=== PATIENT | male | born 1970 | race Caucasian/White ===

== ENCOUNTER → 2020-09-26 | Outpatient (CLI) | payer OTHER ==
--- NOTE | 2020-09-26 13:28 | MR ---
EXAMINATION TYPE: MR knee LT wo con DATE OF EXAM: 09/26/2020 COMPARISON: 06/22/2010 HISTORY: Pain TECHNIQUE: Multiplanar, multisequence imaging of the left knee is performed without IV contrast. FINDINGS: MEDIAL MENISCUS: Extensive degeneration posterior horn medial meniscus without definite tear at this time. Anterior horn is intact. LATERAL MENISCUS: Anterior and posterior horns are intact without tear. CRUCIATE LIGAMENTS: The anterior and posterior cruciate ligaments are intact and unremarkable. COLLATERAL LIGAMENTS: The medial collateral ligament and lateral collateral ligament complex are inta ct and unremarkable. EXTENSOR MECHANISM: Visualized quadriceps and patellar tendons are intact. EFFUSION: No significant suprapatellar joint effusion. POPLITEAL CYST: Saleh's cyst noted measuring approximately 2.4 cm. TRICOMPARTMENT SPACES: Moderate degenerative joint space narrowing greatest at the patellofemoral jayesh nt space with chondromalacia patella seen. CARTILAGE: Chondromalacia patella. BONE MARROW SIGNAL: No focal abnormal marrow signal is appreciated. OTHER: Subchondral cyst formation noted. IMPRESSION: 1. Degenerative changes of osteoarthritis with subchondral cyst formation and changes of chondromalac ia patella. 2. Axial degeneration posterior horn medial meniscus. 3. Saleh's cyst.
== END | disposition home or self-care (01) ==
LOC: RADMRIMAIN 11:55
DX: M17.12 Unilateral primary osteoarthritis, left knee (principal); M22.42 Chondromalacia patellae, left knee; M23.322 Other meniscus derangements, posterior horn of medial meniscus, left knee; M71.22 Synovial cyst of popliteal space [Baker], left knee; Z88.8 Allergy status to other drugs, medicaments and biological substances; Z91.048 Other nonmedicinal substance allergy status

== ENCOUNTER 2021-07-12 15:09 | Emergency (ER) | payer OTHER ==
[2021-07-12 15:50] VITALS: BP 121/78; PULSE 68; RESP 20; TEMP 98.9
--- NOTE | 2021-07-12 16:42 | US ---
EXAMINATION TYPE: US venous doppler duplex LE RT DATE OF EXAM: 07/12/2021 4:22 PM COMPARISON: NONE CLINICAL HISTORY: pain in calf. right calf pain for 2 weeks. history of DVT right leg 2014. patient c urrently on blood thinner SIDE PERFORMED: right TECHNIQUE: The lower extremity deep venous system is examined utilizing real time linear array sonog holden with graded compression, doppler sonography and color-flow sonography. VESSELS IMAGED: Common Femoral Vein Deep Femoral Vein Greater Saphenous Vein * Femoral Vein Popliteal Vein Small Saphenous Vein * Proximal Calf Veins (* superficial vessels) Right Leg: +positive for DVT, appearing chronic. thready flow with partial compression right femoral vein extending into popliteal vein IMPRESSION: There is chronic deep vein thrombosis in the right femoral and popliteal vein. No acute d eep vein thrombosis.
== END 2021-07-12 18:09 | disposition left against medical advice (07) ==
LOC: EC 15:09
DX: M79.604 Pain in right leg (principal)
CPT/HCPCS: 99499

== ENCOUNTER → 2022-05-16 | Outpatient (CLI) | payer OTHER ==
--- NOTE | 2022-05-16 17:52 | P.SLEEP ---
History of Present Illness DATE: 05/16/2022 CONSULTATION/NEW PATIENT EVALUATION HISTORY OF PRESENT ILLNESS/SLEEP-WAKE EVALUATION: 51 year old gentleman had b een evaluated in the sleep center for possible obstructive sleep apnea hypopnea syndrome and some abnormal movements during the sleep. SLEEP SCHEDULE: Usually sleep schedule on weekdays 9 PM to 4:30 AM, during days off 10 PM to 9 AM. FALLING ASLEEP: Sometimes patient has problems with falling to sleep, although no TV in bedroom. DURING SLEEP: Patient has loud snoring and witnessed episodes of sleep apnea by his . Positive history of leg movements, loud moaning. No history of sleep paralysis, or cataplexy. DURING THE DAY/WAKE STATE: Patient wake up tired and sleepy, falling asleep d uring the day. [place] Sleepiness Scale is 5. Patient takes naps early afternoon. 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 PAST SURGICAL HISTORY: Surgery for arterial septal defect in 2002, thrombolysis in 2015. MEDICATIONS: Xarelto 20 mg once a day, allopurinol 200 mg once a day, atorvastatin 20 mg once a day, Synthroid 125 g once a day, loratidine 10 mg once a day, Escitalopram 10 mg once a day. SOCIAL HISTORY: Negative for smoking, alcohol consumption occasional. FAMILY HISTORY: Cancer, hypertension, diabetes. REVIEW OF SYSTEMS: Loud snoring, witnessed sleep apneas. No fevers. No double vision. No recent chest pain. No shortness of breath. No abdominal pain. No bleeding episodes. No blood in urine. No seizure episodes. PHYSICAL EXAMINATION: GENERAL: A pleasant patient without any distress. VITAL SIGNS: BP 121/85 , HR 98 , RR 16 , weight 268 pounds, height 6 foot 0 inches, body mass index 36.3 . HEENT: PERRLA, EOMI. Evaluation of oropharynx showed tongue protrudes midline, low position of soft palate Mallampati 4. NECK: Supple. No JVD. Thyroid is not palpable. 18 and a half inches in circumference. LUNGS: Clear to percussion and to auscultation. Good air exchange. No wheezing or rhonchi. HEART: S1, S2 regular. No murmurs, gallops or rubs. ABDOMEN: Soft and nontender. Bowel sounds are present. No organomegaly appreciated. EXTREMITIES: No clubbing or cyanosis. WELDER TOOL AND DIE: Awake, alert, and oriented x3. Cranial nerves 2 to 7 intact. There is no fasciculation or atrophy noted. No focal deficits observed. ASSESSMENT: 1. Loud snoring, witnessed sleep apneas, extremely low position of soft palate Mallampati 4, episodes of sleepiness. Obstructive sleep apnea hypopnea syndrome. 2. Significant amount of movements during the sleep. Possible periodic limb movements. Rule out REM sleep behavior disorder. 3 history of thrombotic stroke in 1993. 4. History of pulmonary embolism in 2016. 5 history of deep venous thrombosis. 6. Status post surgical treatment for arterial septal defect. 7. Gout. 8. Hypothyroidism. 9. Hyperlipidemia. 10. Obesity body mass index 36.3. PLAN: 1. Polysomnography for evaluation of patient's breathing during sleep. 2. CPAP/BiPAP titration if sleep study confirms obstructive sleep apnea- hypopnea syndrome. 3. Preferable position during sleep on the side. 4. No driving if patient feels any sleepiness. Patient is aware of civil and criminal liability for unsafe driving. 5. Sleep hygiene with regular sleep time for at least 7.5-8 hours. 6. Watching weight. Thank you very much for referring this patient for consultation. Sincerely, Carlitos Ku MD, PhD, FAASM. Diplomat of [employer], Sleep Medicine Board by [employer] Telephone Operator of [facility] [place] Past Medical History Past Medical History: Deep Vein Thrombosis (DVT), Thyroid Disorder Additional Past Medical History / Comment(s): gout, PE History of Any Multi-Drug Resistant Organisms: None Reported Past Surgical History: Coronary Bypass/CABG, Orthopedic Surgery Past Psychological History: Anxiety Smoking Status: Never smoker Past Alcohol Use History: Occasional Past Drug Use History: None Reported Medications and Allergies Allergies Allergy/AdvReac Type Severity Reaction Status Date / Time No Known Allergies Allergy Verified 07/12/21 15:47 Sleep Note - Sleep Note Sleep Note: Temperature: Pulse Rate: Respiratory Rate: Blood Pressure: SpO2: Height: Weight: BMI: Neck Circumference:
== END | disposition home or self-care (01) ==
LOC: SLEEP 15:14
PROVIDERS: ATTEND Internal Medicine
DX: G47.33 Obstructive sleep apnea (adult) (pediatric) (principal); M10.9 Gout, unspecified; E03.9 Hypothyroidism, unspecified; E78.5 Hyperlipidemia, unspecified; E66.9 Obesity, unspecified; Z68.36 Body mass index [BMI] 36.0-36.9, adult; Z86.79 Personal history of other diseases of the circulatory system; Z86.69 Personal history of other diseases of the nervous system and sense organs
CPT/HCPCS: 99211

== ENCOUNTER 2024-09-20 11:31 | Emergency (ER) | payer OTHER ==
[2024-09-20 11:37] VITALS: TEMP 98.2
--- NOTE | 2024-09-20 12:10 | ED ---
General Adult HPI - General Chief complaint: Upper Respiratory Infection Stated complaint: Hemoptysis Time Seen by Provider: 09/20/24 12:01 Source: patient, family, RN notes reviewed Mode of arrival: EMS Limitations: no limitations - History of Present Illness Initial comments: Patient is 54-year-old male present to the emergency department with hemoptysis. Onset was today. Patient coughed up less than a half a cup. Patient has no other complaints. Patient is on Eliquis secondary to history of PE. Patient also is on chemotherapy for stage IV metastatic colon cancer. Patient denies any dyspnea or cough otherwise. No congestion. No fever. No other areas of bleeding or concern. - Related Data Allergies Allergy/AdvReac Type Severity Reaction Status Date / Time No Known Allergies Allergy Verified 09/20/24 11:37 Review of Systems ROS Statement: Those systems with pertinent positive or pertinent negative responses have been documented in the HPI. ROS Other: All systems not noted in ROS Statement are negative. Constitutional: Denies: fever Eyes: Denies: eye pain ENT: Denies: ear pain Respiratory: Reports: as per HPI, hemoptysis Cardiovascular: Denies: chest pain Gastrointestinal: Reports: as per HPI. Denies: hematemesis, melena, hematochezia Musculoskeletal: Denies: back pain Past Medical History Past Medical History: Deep Vein Thrombosis (DVT), Thyroid Disorder Additional Past Medical History / Comment(s): gout, PE, colon cancer History of Any Multi-Drug Resistant Organisms: None Reported Past Surgical History: Coronary Bypass/CABG, Orthopedic Surgery Past Psychological History: Anxiety Smoking Status: Never smoker Past Alcohol Use History: Occasional Past Drug Use History: None Reported General Exam Limitations: no limitations General appearance: alert, in no apparent distress Head exam: Present: normocephalic Eye exam: Present: normal appearance ENT exam: Present: other (Trace dried blood visualized in the nares) Neck exam: Present: normal inspection Respiratory exam: Present: normal lung sounds bilaterally Cardiovascular Exam: Present: regular rate, normal rhythm GI/Abdominal exam: Present: soft. Absent: tenderness Extremities exam: Present: normal inspection. Absent: pedal edema, calf tenderness Neurological exam: Present: alert Psychiatric exam: Present: normal affect, normal mood Skin exam: Present: normal color Course Vital Signs 09/20/24 11:33 Temperature 98.2 F Pulse Rate 87 Respiratory 18 Rate Blood Pressure 151/91 O2 Sat by Pulse 94 L Oximetry EKG Findings - EKG Results: EKG: interpreted by ERMD (Nonspecific ST-T), sinus rhythm, normal axis, normal QRS Medical Decision Making - Medical Decision Making Was pt. sent in by a medical professional or institution (ALEX Vasquez, CAR DESIGNER, urgent care, hospital, or correction...) When possible be specific @ -No Did you speak to anyone other than the patient for history (EMS, parent, family, police, friend...)? What history was obtained from this source @ -Family is present and helps provide history including amount of hemoptysis Did you review nursing and triage notes (agree or disagree)? Why? @ -I reviewed and agree with nursing and triage notes Were old charts reviewed (outside hosp., previous admission, EMS record, old EKG, old radiological studies, urgent care reports/EKG's, correction records)? Report findings @ -No old charts were reviewed Differential Diagnosis (chest pain, altered mental status, abdominal pain women, abdominal pain men, vaginal bleeding, weakness, fever, dyspnea, syncope, he adache, dizziness, GI bleed, back pain, seizure, CVA, palpatations, mental health, musculoskeletal)? @ -Differential Dyspnea: Coronary syndrome, arrhythmia, tamponade, asthma, COPD, pulmonary embolism, pneumonia, pneumothorax, pulmonary effusion, anaphylaxis, diabetic ketoacidosis, flailed chest, pulmonary contusion, diaphragmatic rupture, anemia, neuromuscular, this is not meant to be an all-inclusive list. EKG interpreted by me (3pts min.). @ -As above X-rays interpreted by me (1pt min.). @ -None done CT interpreted by me (1pt min.). @ -CT scan is somewhat suboptimal. Lung nodule. No obvious embolism U/S interpreted by me (1pt. min.). @ -None done What testing was considered but not performed or refused? (CT, X-rays, U/S, labs)? Why? @ -None What meds were considered but not given or refused? Why? @ -None Did you discuss the management of the patient with other professionals (professionals i.e. ALEX Vasquez, CAR DESIGNER, lab, RT, psych nurse, older adult social work specialist, burglar alarm installer, teacher, bank operations officer, case checker)? Give summary @ -Case discussed in detail with Dr. Prince who states patient can be discharged and to hold Eliquis 3 days Was smoking cessation discussed for >3mins.? @ -No Was critical care preformed (if so, how long)? @ -No Were there social determinants of health that impacted care today? How? (Homelessness, low income, unemployed, alcoholism, drug addiction, transportatio n, low edu. Level, literacy, decrease access to med. care, [facility], rehab)? @ -No Was there de-escalation of care discussed even if they declined (Discuss DNR or withdrawal of care, Hospice)? DNR status @ -No What co-morbidities impacted this encounter? (DM, HTN, Smoking, COPD, CAD, Cancer, CVA, ARF, Chemo, Hep., AIDS, mental health diagnosis, sleep apnea, morbid obesity)? @ -Patient on Eliquis, history of metastatic colon cancer Was patient admitted / discharged? Hospital course, mention meds given and route, prescriptions, significant lab abnormalities, going to OR and other pertinent info. @ -Patient presents with hemoptysis. No significant hemoptysis in the emergency department. Patient reevaluated and resting comfortably in bed. CT scan unremarkable for acute cause. Labs otherwise noncontributory. Patient will be discharged and recommended follow-up and holding Eliquis for 3 days. Patient updated and demonstrates understanding. Patient is specifically updated on lung nodule Undiagnosed new problem with uncertain prognosis? @ -No Drug Therapy requiring intensive monitoring for toxicity (Heparin, Nitro, Insulin, Cardizem)? @ -No Were any procedures done? @ -No Diagnosis/symptom? @ -Hemoptysis Acute, or Chronic, or Acute on Chronic? @ -Acute Uncomplicated (without systemic symptoms) or Complicated (systemic symptoms)? @ -Default Side effects of treatment? @ -No Exacerbation, Progression, or Severe Exacerbation? @ -No Poses a threat to life or bodily function? How? (Chest pain, [place], [place], pneumonia, PE, COPD, DKA, ARF, appy, cholecystitis, CVA, Diverticulitis, Homicidal, Suicidal, threat to staff... and all critical care pts) @ -Threat to pulmonary and hematological function - Lab Data Result diagrams: 09/20/24 12:34 09/20/24 12:34 Lab Results 09/20/24 09/20/24 09/20/24 Range/Units 12:34 12:34 12:34 WBC 3.0 L (3.8-10.6) k/uL RBC 4.92 (4.30-5.90) m/uL Hgb 14.6 (13.0-17.5) gm/dL Hct 44.0 (39.0-53.0) % MCV 89.5 (80.0-100.0) fL MCH 29.7 (25.0-35.0) pg MCHC 33.2 (31.0-37.0) g/dL RDW 15.1 (11.5-15.5) % Plt Count 178 (150-450) k/uL MPV 7.1 Neutrophils % 65 % Lymphocytes % 25 % Monocytes % 3 % Eosinophils % 2 % Basophils % 1 % Neutrophils # 1.9 (1.3-7.7) k/uL Lymphocytes # 0.8 L (1.0-4.8) k/uL Monocytes # 0.1 (0-1.0) k/uL Eosinophils # 0.1 (0-0.7) k/uL Basophils # 0.0 (0-0.2) k/uL PT 10.6 (10.0-12.5) sec INR 1.0 (<1.2) APTT 24.0 (22.0-30.0) sec Sodium 132 L (137-145) mmol/L Potassium 3.9 (3.5-5.1) mmol/L Chloride 101 (98-107) mmol/L Carbon Dioxide 19 L (22-30) mmol/L Anion Gap 12 mmol/L BUN 12 (9-20) mg/dL Creatinine 0.85 (0.66-1.25) mg/dL Est GFR (CKD-EPI)AfAm >90 (>60 ml/min/1.73 sqM) Est GFR (CKD-EPI)NonAf >90 (>60 ml/min/1.73 sqM) Glucose 242 H (74-99) mg/dL Plasma Lactic Acid Walker (0.7-2.0) mmol/L Calcium 9.1 (8.4-10.2) mg/dL Magnesium 2.3 (1.6-2.3) mg/dL Total Bilirubin 0.6 (0.2-1.3) mg/dL AST 51 (17-59) U/L ALT 43 (4-49) U/L Alkaline Phosphatase 72 (38-126) U/L Total Protein 7.1 (6.3-8.2) g/dL Albumin 4.1 (3.5-5.0) g/dL 09/20/24 Range/Units 12:34 WBC (3.8-10.6) k/uL RBC (4.30-5.90) m/uL Hgb (13.0-17.5) gm/dL Hct (39.0-53.0) % MCV (80.0-100.0) fL MCH (25.0-35.0) pg MCHC (31.0-37.0) g/dL RDW (11.5-15.5) % Plt Count (150-450) k/uL MPV Neutrophils % % Lymphocytes % % Monocytes % % Eosinophils % % Basophils % % Neutrophils # (1.3-7.7) k/uL Lymphocytes # (1.0-4.8) k/uL Monocytes # (0-1.0) k/uL Eosinophils # (0-0.7) k/uL Basophils # (0-0.2) k/uL PT (10.0-12.5) sec INR (<1.2) APTT (22.0-30.0) sec Sodium (137-145) mmol/L Potassium (3.5-5.1) mmol/L Chloride (98-107) mmol/L Carbon Dioxide (22-30) mmol/L Anion Gap mmol/L BUN (9-20) mg/dL Creatinine (0.66-1.25) mg/dL Est GFR (CKD-EPI)AfAm (>60 ml/min/1.73 sqM) Est GFR (CKD-EPI)NonAf (>60 ml/min/1.73 sqM) Glucose (74-99) mg/dL Plasma Lactic Acid Walker 2.2 H* (0.7-2.0) mmol/L Calcium (8.4-10.2) mg/dL Magnesium (1.6-2.3) mg/dL Total Bilirubin (0.2-1.3) mg/dL AST (17-59) U/L ALT (4-49) U/L Alkaline Phosphatase (38-126) U/L Total Protein (6.3-8.2) g/dL Albumin (3.5-5.0) g/dL Disposition Clinical Impression: Hemoptysis Disposition: HOME SELF-CARE Condition: Stable Instructions (If sedation given, give patient instructions): Coughing Up Blood (Hemoptysis) (ED) Additional Instructions: Please do follow-up with your primary care physician and oncologist beginning of the week. Hold Eliquis for 3 days. Return for increased coughing up blood, bl eeding from other areas, difficulty breathing, fevers, worsening symptoms or any other concerns. Is patient prescribed a controlled substance at d/c from ED?: No [facility] [Primary Care Provider] - 1-2 days Tosin Curry MD [STAFF PHYSICIAN] - 1-2 days Time of Disposition: 14:28
[2024-09-20] MEDS: PANTOPRAZOLE 40 MG/10 ML VIAL IVP STA (12:37)
[2024-09-20 12:51] LABS: ALT 43 U/L (4-49); AST 51 U/L (17-59); African American GFR (CKD) >90 (>60 ml/min/1.73 sqM); Albumin 4.1 g/dL (3.5-5.0); Alkaline Phosphatase 72 U/L (38-126); Anion Gap 12 mmol/L; Blood Urea Nitrogen 12 mg/dL (9-20); Calcium 9.1 mg/dL (8.4-10.2); Carbon Dioxide 19 mmol/L (22-30); Chloride 101 mmol/L (98-107); Glucose 242 mg/dL (74-99); Magnesium 2.3 mg/dL (1.6-2.3); Non-African American GFR(CKD) >90 (>60 ml/min/1.73 sqM); Potassium 3.9 mmol/L (3.5-5.1); Prothrombin Time 10.6 sec (10.0-12.5); Sodium 132 mmol/L (137-145); Total Bilirubin 0.6 mg/dL (0.2-1.3); Total Protein 7.1 g/dL (6.3-8.2)
[2024-09-20 12:52] LABS: Basophils % (A) 1 %; Eosinophils # (A) 0.1 k/uL (0-0.7); Eosinophils % (A) 2 %; HGB 14.6 gm/dL (13.0-17.5); Lymphocytes # (A) 0.8 k/uL (1.0-4.8); Lymphocytes % (A) 25 %; MCH 29.7 pg (25.0-35.0); MCHC 33.2 g/dL (31.0-37.0); MCV 89.5 fL (80.0-100.0); Mean Platelet Volume 7.1; Monocytes # (A) 0.1 k/uL (0-1.0); Monocytes % (A) 3 %; Neutrophils # (A) 1.9 k/uL (1.3-7.7); Neutrophils % (A) 65 %; Platelet Count 178 k/uL (150-450); RBC 4.92 m/uL (4.30-5.90); RDW 15.1 % (11.5-15.5)
--- NOTE | 2024-09-20 13:24 | CT ---
EXAMINATION TYPE: CT angio chest DATE OF EXAM: 09/20/2024 COMPARISON: None CLINICAL INDICATION: Male, 54 years old with history of Hemoptysis; PHH, HEMOPTYSIS TECHNIQUE: CTA scan of the thorax is performed with IV Contrast, patient injected with 100 mL of Isovue 370, pul monary embolism protocol. MIP images are created and reviewed. CT DLP: 603.[address] CTDI: mGy Automated exposure control for dose reduction was used. FINDINGS: There is a 5.4 mm nodule in the right upper lobe. No other lung masses or nodules are seen. There is no airspace consolidation or abnormal interstitial density. There is no pleural effusion or pneumotho rax.. The great vessels chest are normal and no mediastinal, hilar or axillary adenopathy. There is less than optimal opacification of the pulmonary artery and branches but there is no definit e filling defect to suggest pulmonary embolism. Limited scanning through the upper abdomen reveals no significant abnormality. The osseous structures are intact. There is been median sternotomy. IMPRESSION: 1. Less than optimal opacification of the pulmonary arteries but there is no definite filling defect to suggest pulmonary embolism. 2. No acute cardiopulmonary disease. 3. 5.4 mm nodule in the right upper lobe. Likely benign finding although given history of colon cance r and no prior study for comparison, metastatic disease cannot be entirely excluded. [facility], , 09/20/2024 1:22 PM
[2024-09-20 14:49] VITALS: BP 123/89; PULSE 85; RESP 20
== END 2024-09-20 14:49 | disposition home or self-care (01) ==
LOC: EC 11:31
DX: R04.2 Hemoptysis (principal); Z79.01 Long term (current) use of anticoagulants; Z85.038 Personal history of other malignant neoplasm of large intestine
CPT/HCPCS: 36415; 93005; 80053; 83605; 83735; 85025; 85610; 85730; 71275; 99285; 96374; Q9967; J2470

== ENCOUNTER 2024-09-20 14:59 | Inpatient (IN) | payer OTHER ==
--- NOTE | 2024-09-20 15:40 | ED ---
General Adult HPI - General Chief complaint: ENT Stated complaint: just dc'd-still bleeding Time Seen by Provider: 09/20/24 15:08 Source: patient, family, RN notes reviewed, old records reviewed Mode of arrival: ambulatory Limitations: no limitations - History of Present Illness Initial comments: Patient is a 54-year-old male present to the emergency department for hemoptysis. Patient was just in the emergency department after an episode this morning. Patient was doing fine and left. Patient had another episode in the waiting room. Patient had approximately 1 cup worth. Patient states again this was all coughing, no emesis. No other areas of bleeding. Patient is on Eliquis secondary to history of pulmonary embolism. Patient also has history of being on chemotherapy with stage IV metastatic colon cancer. - Related Data Allergies Allergy/AdvReac Type Severity Reaction Status Date / Time No Known Allergies Allergy Verified 09/20/24 15:06 Review of Systems ROS Statement: Those systems with pertinent positive or pertinent negative responses have been documented in the HPI. ROS Other: All systems not noted in ROS Statement are negative. Constitutional: Denies: fever Eyes: Denies: as per HPI ENT: Denies: ear pain Respiratory: Reports: as per HPI, hemoptysis. Denies: dyspnea Cardiovascular: Denies: chest pain Endocrine: Denies: fatigue Gastrointestinal: Denies: abdominal pain, hematemesis, melena, hematochezia Past Medical History Past Medical History: Deep Vein Thrombosis (DVT), Thyroid Disorder Additional Past Medical History / Comment(s): gout, PE, colon cancer History of Any Multi-Drug Resistant Organisms: None Reported Past Surgical History: Coronary Bypass/CABG, Orthopedic Surgery Past Psychological History: Anxiety Smoking Status: Never smoker Past Alcohol Use History: Occasional Past Drug Use History: None Reported General Exam Limitations: no limitations General appearance: alert, in no apparent distress Head exam: Present: normocephalic Eye exam: Present: normal appearance ENT exam: Present: other (There is some mild fresh blood in the oropharynx, no evidence of active bleeding) Neck exam: Present: normal inspection Respiratory exam: Present: normal lung sounds bilaterally Cardiovascular Exam: Present: tachycardia GI/Abdominal exam: Present: soft. Absent: tenderness Extremities exam: Present: normal inspection Neurological exam: Present: alert Psychiatric exam: Present: normal affect, normal mood Skin exam: Present: normal color Course Vital Signs 09/20/24 15:03 Temperature 97.6 F Pulse Rate 123 H Respiratory 16 Rate Blood Pressure 160/79 O2 Sat by Pulse 95 Oximetry Medical Decision Making - Medical Decision Making Was pt. sent in by a medical professional or institution (ALEX Vasquez, [employer], urgent care, hospital, or fdc...) When possible be specific @ -No Did you speak to anyone other than the patient for history (EMS, parent, family, police, friend...)? What history was obtained from this source @ - is present and helps provide history of episode that occurred in the waiting room Did you review nursing and triage notes (agree or disagree)? Why? @ -I reviewed and agree with nursing and triage notes Were old charts reviewed (outside hosp., previous admission, EMS record, old EKG, old radiological studies, urgent care reports/EKG's, fdc records)? Report findings @ -No old charts were reviewed Differential Diagnosis (chest pain, altered mental status, abdominal pain women, abdominal pain men, vaginal bleeding, weakness, fever, dyspnea, syncope, headache, dizziness, GI bleed, back pain, seizure, CVA, palpatations, mental health, musculoskeletal)? @ -Differential Dyspnea: Coronary syndrome, arrhythmia, tamponade, asthma, COPD, pulmonary embolism, pneumonia, pneumothorax, pulmonary effusion, anaphylaxis, diabetic ketoacidosis, flailed chest, pulmonary contusion, diaphragmatic rupture, anemia, neuromuscular, this is not meant to be an all-inclusive list. EKG interpreted by me (3pts min.). @ -As above X-rays interpreted by me (1pt min.). @ -None done CT interpreted by me (1pt min.). @ -None done U/S interpreted by me (1pt. min.). @ -None done What testing was considered but not performed or refused? (CT, X-rays, U/S, labs)? Why? @ -Consider blood work and imaging however patient just had this done What meds were considered but not given or refused? Why? @ -None Did you discuss the management of the patient with other professionals (professionals i.e. ALEX Vasquez, [employer], lab, RT, psych nurse, delinquency prevention social worker, knock out hand, teacher, special officer automat, top case assembler)? Give summary @ -Case discussed with practitioner Yogesh who will admit with sound physician group, covering for this ND patient Was smoking cessation discussed for >3mins.? @ -No Was critical care preformed (if so, how long)? @ -No Were there social determinants of health that impacted care today? How? (Homelessness, low income, unemployed, alcoholism, drug addiction, transportation, low edu. Level, literacy, decrease access to med. care, skilled nursing, rehab)? @ -No Was there de-escalation of care discussed even if they declined (Discuss DNR or withdrawal of care, Hospice)? DNR status @ -No What co-morbidities impacted this encounter? (DM, HTN, Smoking, COPD, CAD, Cancer, CVA, ARF, Chemo, Hep., AIDS, mental health diagnosis, sleep apnea, morbid obesity)? @ -History of metastatic colon cancer. History of pulmonary embolism Was patient admitted / discharged? Hospital course, mention meds given and route, prescriptions, significant lab abnormalities, going to OR and other pertinent info. @ -Patient presents for return visit after discharge for hemoptysis with a larger episode. Patient will be held for observation. Pulmonary consult will be placed. If symptoms worsen patient may benefit from bronchoscopy or Eliquis reversal. Decision at this time not to reverse patient secondary to him being stable and being observed. Patient does have history of large pulmonary embolism Undiagnosed new problem with uncertain prognosis? @ -No Drug Therapy requiring intensive monitoring for toxicity (Heparin, Nitro, Insulin, Cardizem)? @ -No Were any procedures done? @ -No Diagnosis/symptom? @ -Hemoptysis Acute, or Chronic, or Acute on Chronic? @ -Acute Uncomplicated (without systemic symptoms) or Complicated (systemic symptoms)? @ -Default Side effects of treatment? @ -No Exacerbation, Progression, or Severe Exacerbation? @ -No Poses a threat to life or bodily function? How? (Chest pain, [place], [place], pneumonia, PE, COPD, DKA, ARF, appy, cholecystitis, CVA, Diverticulitis, Homicidal, S uicidal, threat to staff... and all critical care pts) @ -No Disposition Clinical Impression: Hemoptysis Disposition: ADMITTED IP TO THIS HOSP Is patient prescribed a controlled substance at d/c from ED?: No Referrals: [facility],Clinic [Primary Care Provider] - 1-2 days Time of Disposition: 15:43
[2024-09-20] MEDS ORDERED: ACETAMINOPHEN TAB 325 MG TAB PO PRN (15:43)
[2024-09-20] MEDS ORDERED: NALOXONE 0.4 MG/ML 1 ML VIAL IV PRN (15:43)
--- NOTE | 2024-09-20 16:09 | P.HPIM ---
History of Present Illness This is a 54-year-old male with past medical history of colon cancer currently on chemotherapy, pulmonary embolism, factor V Leiden deficiency, history of stroke currently on anticoagulation presents emergency department for 2 episodes of hemoptysis. His is also present at bedside. He states that this morning around 11:00 he had an episode of hemoptysis. It was bright red blood and he says that he did not have a large cough, it was small coughs but each time he would cough up it would bring up bright red blood sometimes with clots. He did present to the emergency department for further evaluation. He was evaluated by the ER physician, case was discussed with pulmonology, decision was made to discharge the patient. On his way to being discharged, patient had another episode of hemoptysis so decision was to admit the patient for further workup. He has a long complicated history, he states that he had valve veg etation, but he believes that his initial stroke was caused by ibalizumab of the vegetation that was growing on his valve. It has since been surgically removed and corrected. He he states that he has been on blood thinners for several years now, the latest being Eliquis. He is compliant with his medication. Patient states that he did take an Aleve yesterday but is not using it daily. No chronic steroid use. He is not a smoker, only occasionally drinks alcohol. Vital signs are stable. Labs are unremarkable. Past Medical History Past Medical History: Deep Vein Thrombosis (DVT), Thyroid Disorder Additional Past Medical History / Comment(s): gout, PE, colon cancer History of Any Multi-Drug Resistant Organisms: None Reported Past Surgical History: Coronary Bypass/CABG, Orthopedic Surgery Past Psychological History: Anxiety Smoking Status: Never smoker Past Alcohol Use History: Occasional Past Drug Use History: None Reported Medications and Allergies Allergies Allergy/AdvReac Type Severity Reaction Status Date / Time No Known Allergies Allergy Verified 09/20/24 15:06 Physical Exam Vitals: Vital Signs Temp Pulse Resp BP Pulse Ox 09/20/24 15:03 97.6 F 123 H 16 160/79 95 Intake and Output 09/20/24 09/20/24 09/20/24 06:59 14:59 22:59 Other: Weight 117.48 kg General: [nontoxic], [no distress], [appears at stated age], bright red blood noted in canister nearby Derm: [warm], [dry] Head: [atraumatic], [normocephalic], [symmetric] Eyes: [EOMI], [no lid lag], [anicteric sclera] Mouth: [no lip lesion], [mucus membranes moist] Cardiovascular: [S1S2 reg], [no murmur], [positive posterior tibial pulse bilateral], Lungs: [CTA bilateral], [no rhonchi, no rales] , [no accessory muscle use] Abdominal: [soft], [ nontender to palpation], [no guarding], [no appreciable organomegaly] Ext: [no gross muscle atrophy], [no edema], [no contractures] Neuro: [ CN II-XI grossly intact], [no focal neuro deficits] Psych: [Alert], [oriented], [appropriate affect] Assessment and Plan Assessment: Hemoptysis Acute blood loss anemia, stable hemoglobin Factor V Leiden deficiency Metastatic colon cancer currently on chemotherapy Lactic acidosis Hypovolemic hyponatremia Patient started on normal saline for fluid resuscitation At this time no significant amount of blood loss noted Hemoglobin is stable at 14 Consult placed to pulmonology, possible need for bronchoscopy if worsening Hold home anticoagulation, states he is on Eliquis 10 mg at home, will need to verify dose SCDs for DVT prophylaxis Hold chemical DVT prophylaxis Clear liquid diet, no red dyes Started patient on Protonix 40 mg IV push daily Consult also to hematology oncology Will admit patient to observation unit Vital signs every 4 hours Transfuse if hemoglobin reaches below 8 in a cancer patient
[2024-09-20] MEDS: SODIUM CHLORIDE 0.9% 1,000 ML IV SCH (16:14)
[2024-09-20] MEDS ORDERED: LORATADINE 10 MG TAB PO PRN (20:32)
[2024-09-20] MEDS: LEVOTHYROXINE 137 MCG TAB PO SCH (21:07)
[2024-09-20] MEDS: allopurinoL 100 MG TAB PO SCH (21:08)
[2024-09-20] MEDS: ATORVASTATIN 40 MG TAB PO SCH (21:08)
[2024-09-20] MEDS: LORazepam 0.5 MG TAB PO PRN (21:49)
[2024-09-20 22:21] LABS: Basophils % (A) 1 %; Eosinophils # (A) 0.1 k/uL (0-0.7); Eosinophils % (A) 2 %; HCT 39.9 % (39.0-53.0); HGB 13.4 gm/dL (13.0-17.5); Lymphocytes % (A) 29 %; MCHC 33.6 g/dL (31.0-37.0); MCV 89.4 fL (80.0-100.0); Mean Platelet Volume 7.7; Monocytes # (A) 0.1 k/uL (0-1.0); Monocytes % (A) 4 %; Neutrophils # (A) 2.1 k/uL (1.3-7.7); Neutrophils % (A) 62 %; Platelet Count 187 k/uL (150-450); RBC 4.46 m/uL (4.30-5.90); RDW 15.3 % (11.5-15.5); WBC 3.5 k/uL (3.8-10.6)
--- NOTE | 2024-09-21 04:19 | P.CNPUL ---
History of Present Illness Consult date: 09/21/24 Requesting physician: Logan Cristobal Reason for consult: other (Hemoptysis) Chief complaint: Hemoptysis History of present illness: Patient is a 54-year-old male with past medical history significant for metastatic colon cancer (currently on chemotherapy), previous DVT/PE, factor V Leyden, chronically anticoagulated on Xarelto, previous CVA/TIA, hyperlipidemia, hypothyroidism. [facility] Over the last 24 hours, patient has had 3 episodes of hemoptysis. Fairly large in volume with clots but mixed with sputum. Approximately quarter to half cup in volume. Patient does take Xarelto on an outpatient basis. He has history of DVT/PE and factor V Leyden. Denies any prior history of hemoptysis. He is currently being evaluated on 6 N. He is on room air oxygen in no acute distress. He does have a sputum basin at bedside, approximately quarter cup, hemoptysis mixed with sputum and clots. His last episode of hemoptysis was at 2100 the last night. Denies chest pain. Denies trauma. Denies nausea, vomiting, hematemesis. Chest CTA did not show any obvious sources of bleeding. Less than optimal opacification of the pulmonary arteries but no definite filling defects consistent with pulmonary embolism. No acute cardiopulmonary process. There was a 5.4 mm right upper lobe nodule. No prior available study for comparison.CBC: WBC count 3.5, hemoglobin 13.4, hematocrit 39.9, platelets 187. Coagulation profile: PT 10.6, INR 1, APTT 24. CMP: Sodium 132, potassium 3.9, chloride 101, serum bicarb 19, BUN 12, creatinine 0.85, glucose 242. Lactic was 2.2. LFTs unremarkable. Current vitals: Temperature 98.4 F, heart rate 85 bpm, blood pressure 144/86 mmHg, SpO2 96% on room air. Again patient is not in any respiratory distress. Review of Systems Constitutional: Denies chills, Denies fever, Denies poor appetite, Denies weight loss Ears, nose, mouth and throat: Denies dysphagia, Denies epistaxis, Denies nasal congestion, Denies nasal discharge, Denies post-nasal drip, Denies sore throat Cardiovascular: Denies chest pain (Michelle just intubated abdomen sedated), Denies leg edema, Denies orthopnea, Denies palpitations, Denies paroxysmal nocturnal dyspnea, Denies syncope Respiratory: Reports cough, Reports dyspnea, Reports hemoptysis, Denies home oxygen, Denies pain on inspiration Gastrointestinal: Denies abdominal pain, Denies coffee ground emesis, Denies hem atochezia, Denies melena, Denies nausea, Denies vomiting Genitourinary: Denies dysuria Musculoskeletal: Denies limitation of motion Integumentary: Denies rash Neurological: Denies seizures, Denies syncope Psychiatric: Denies anxiety, Denies depression Past Medical History Past Medical History: Deep Vein Thrombosis (DVT), Hyperlipidemia, Pulmonary Embolus (PE), Seizure Disorder, Sleep Apnea/CPAP/BIPAP, Thyroid Disorder Additional Past Medical History / Comment(s): gout, PE,rt leg dvt, colon cancer -01/2023 with chemo tx last from saturday09/15/24- to 09/17/24. last seizure was 10years ago. factor 5 clotting disorder. History of Any Multi-Drug Resistant Organisms: None Reported Past Surgical History: Coronary Bypass/CABG, Orthopedic Surgery Additional Past Surgical History / Comment(s): 2003 heart vavle sx, lap colectom y 03/28/2023 Past Anesthesia/Blood Transfusion Reactions: No Reported Reaction Past Psychological History: Anxiety Smoking Status: Never smoker Past Alcohol Use History: Occasional Past Drug Use History: None Reported - Past Family History Father Family Medical History: Cancer Additional Family Medical History / Comment(s): skin cancer at age 78 Mother Family Medical History: Cancer Additional Family Medical History / Comment(s): pancreatic cancer age 67 Sister(s) Additional Family Medical History / Comment(s): clotting fator 5 Medications and Allergies Home Medications Medication Instructions Recorded Confirmed Type Aspirin EC [Ecotrin Low Dose] 81 mg PO HS 09/20/24 09/20/24 History Atorvastatin [Lipitor] 60 mg PO HS 09/20/24 09/20/24 History LORazepam [Ativan] 0.5 mg PO DAILY PRN 09/20/24 09/20/24 History Levothyroxine Sodium [Synthroid] 137 mcg PO HS 09/20/24 09/20/24 History Loratadine [Claritin] 10 mg PO DAILY PRN 09/20/24 09/20/24 History Rivaroxaban [Xarelto] 20 mg PO HS 09/20/24 09/20/24 History allopurinoL [Zyloprim] 200 mg PO HS 09/20/24 09/20/24 History Allergies Allergy/AdvReac Type Severity Reaction Status Date / Time No Known Allergies Allergy Verified 09/20/24 16:54 Physical Exam Vitals: Vital Signs Temp Pulse Pulse Resp BP BP Pulse Ox 09/20/24 21:39 105 H 20 162/80 94 L 09/20/24 18:46 98.4 F 85 16 144/86 96 09/20/24 18:31 98.2 F 91 18 139/79 98 09/20/24 17:51 89 18 98 09/20/24 16:11 92 18 132/83 94 L 09/20/24 15:03 97.6 F 123 H 16 160/79 95 Intake and Output 09/20/24 09/20/24 09/21/24 14:59 22:59 06:59 Output Total 50 Balance -50 Output: Emesis 50 Other: # Voids 1 Weight 117.48 kg GENERAL EXAM: Alert, 54-year-old male, lying comfortably in bed, no acute respiratory distress. HEAD: Normocephalic and atraumatic EYES: Normal reaction of pupils, equal size. NOSE: Clear with pink turbinates. THROAT: No erythema or exudates. NECK: No masses, no JVD. CHEST: No chest wall deformity. LUNGS: Equal air entry with no crackles, wheeze, rhonchi or dullness. On room air. No conversational dyspnea or accessory muscle use.. CVS: S1 and S2 normal with no audible murmur, regular rhythm. No extra heart sounds ABDOMEN: No hepatosplenomegaly, active bowel sounds, no guarding or rigidity. SPINE: No scoliosis or deformity SKIN: No rashes CENTRAL NERVOUS SYSTEM: No focal deficits, tone is normal in all 4 extremities. EXTREMITIES: There is no peripheral edema, clubbing, or cyanosis. Peripheral pulses are intact. Results - Laboratory Findings CBC and BMP: 09/20/24 22:00 Abnormal lab findings: Abnormal Labs 09/20/24 22:00 WBC 3.5 L - Diagnostic Findings Chest x-ray: image reviewed Assessment and Plan Assessment: Small hemoptysis, three occurrences, estimated at quarter to half cup in volume Chronically anticoagulated on Xarelto, which is on hold, secondary to above History of factor V Leyden History of DVT/PE History of CVA/TIA History of metastatic colon cancer, reportedly currently on chemotherapy History of hyperlipidemia History of hypothyroidism Obesity, BMI 35.1 kg/m Plan: Patient's medications, labs, imaging were reviewed Patient is being admitted for monitoring. Currently on room air in no respiratory distress. Last reported episode of hemoptysis last night at 2100. Xarelto is currently on hold If bleeding continues, consider reversal with andexanet May also require follow-up bronchoscopy to isolate area of bleeding if hemoptysis persists. We will continue to follow, and further recommendations to follow I have personally seen and examined the patient, performed the documentation and the assessment and plan as written. Number of minutes spent on the visit:20 Time with Patient: Greater than 30
[2024-09-21 08:44] LABS: ALT 45 U/L (10-49); AST 49 U/L (14-35); Albumin 3.9 g/dL (3.8-4.9); Albumin/Globulin Ratio 1.56 Ratio (1.60-3.17); Alkaline Phosphatase 80 U/L (41-126); BUN/Creat Ratio 12.89 Ratio (12.00-20.00); Blood Urea Nitrogen 11.6 mg/dL (9.0-27.0); Calcium 8.6 mg/dL (8.7-10.3); Carbon Dioxide 18.1 mmol/L (21.6-31.8); Chloride 101 mmol/L (96-109); Globulin 2.5 g/dL (1.6-3.3); Glucose 131 mg/dL (70-110); Potassium 4.3 mmol/L (3.5-5.5); Sodium 134 mmol/L (135-145); Total Bilirubin 0.5 mg/dL (0.3-1.2); Total Protein 6.4 g/dL (6.2-8.2)
[2024-09-21 08:55] LABS: Basophils # (A) 0.03 X 10*3/uL (0.00-0.10); Basophils % (A) 0.8 %; Eosinophils # (A) 0.06 X 10*3/uL (0.04-0.35); Eosinophils % (A) 1.6 %; HCT 39.9 % (39.6-50.0); HGB 13.2 g/dL (13.0-17.0); Lymphocytes # (A) 1.28 X 10*3/uL (0.90-5.00); MCH 30.1 pg (27.0-32.0); MCHC 33.1 g/dL (32.0-37.0); MCV 91.1 FL (80.0-97.0); Mean Platelet Volume 9.6 FL (9.5-12.2); Monocytes # (A) 0.29 X 10*3/uL (0.20-1.00); Monocytes % (A) 7.7 %; NRBC Per 100 WBC 0 X 10*3/uL (0.00-0.01); Neutrophils # (A) 2.08 X 10*3/uL (1.80-7.70); Neutrophils % (A) 55.4 %; Platelet Count 186 X 10*3/uL (140-440); RBC 4.38 X 10*6/uL (4.40-5.60); RDW 14.4 % (11.5-14.5); WBC 3.76 X 10*3/uL (4.50-10.00)
[2024-09-21] MEDS: PANTOPRAZOLE 40 MG/10 ML VIAL IV SCH (10:23)
--- NOTE | 2024-09-21 15:43 | XR ---
EXAMINATION TYPE: XR chest 1V portable DATE OF EXAM: 09/21/2024 3:36 PM COMPARISON: None. CLINICAL INDICATION: Male, 54 years old with history of Hemoptysis, TECHNIQUE: XR chest 1V portable view(s) obtained. FINDINGS: The heart size is normal. The pulmonary vasculature is normal. Opacities at the right lung base likely on the basis of atelectasis. Port is present on the right tip in the proximal right atrium IMPRESSION: 1. Atelectasis right lung base [facility], , 09/21/2024 3:41 PM
--- NOTE | 2024-09-21 16:01 | P.PN ---
Subjective Progress Note Date: 09/21/24 Hospital Course: 54-year-old male with past medical history of metastatic colon cancer on chem otherapy, PE, factor V Leyden deficiency, history of stroke, on anticoagulation, who presented to the ER after 2 episodes of hemoptysis. Patient described bright red blood with small clots at times with some clots. Patient was evaluated in the ER and case was discussed with pulmonology, initial decision was made to discharge the patient, however, patient had another episode of hemoptysis and was decided to admit him, patient was scheduled for bronchoscopy for 09/22, blood thinners on hold. Subjective: Seen and examined at bedside, patient's family present during encounter. Patient's last episode of hemoptysis described as 1 cup of bright red blood earlier in the morning patient denies chest pain, shortness of breath Pertinent positives and negatives as discussed above, a complete review of systems was performed and all other systems are negative. Vitals Signs Reviewed. General: [nontoxic], [no distress], [appears at stated age] Derm: [warm], [dry] Head: [atraumatic], [normocephalic], [symmetric] Eyes: [EOMI], [no lid lag], [anicteric sclera] Mouth: [no lip lesion], [mucus membranes moist] Cardiovascular: [S1S2 reg], [no murmur] Lungs: [CTA bilateral], [no rhonchi, no rales] , [no accessory muscle use] Abdominal: [soft], [ nontender to palpation], [no guarding], [no appreciable organomegaly] Ext: [no gross muscle atrophy], [no edema], [no contractures] Neuro: [ CN II-XI grossly intact], [no focal neuro deficits] Psych: [Alert], [oriented], [appropriate affect] Data Reviewed Today: Pertinent Labs: WBC borderline 3.76, hemoglobin stable 13.2, normal platelet count, chemistry with mild hyponatremia 134, creatinine stable 0.9, mildly elevated AST 49, normal 825, Imaging: [] Chest x-ray showed right lung base atelectasis Assessment and Plan: Acute hemoptysis in the patient with factor V Leyden deficiency on anticoagulation -Pulmonology consulted, scheduled for bronchoscopy 09/22 -Hematology consulted, pending recommendations -Continue to hold Eliquis -PPI -Monitor CBC -Per pulmonology, patient can be taken for emergent bronchoscopy in case of symptoms deterioration Lactic acidosis, resolved Metastatic colon cancer on chemotherapy DVT ppx: On hold Anticipated discharge place: 48 hours Anticipated discharge time:home Objective - Vital Signs Vital signs: Vital Signs Temp 98.2 F 09/21/24 14:02 Pulse 92 09/21/24 14:02 Resp 15 09/21/24 14:02 BP 98/64 09/21/24 14:02 Pulse Ox 96 09/21/24 14:02 FiO2 Intake & Output 09/20/24 09/21/24 09/21/24 18:59 06:59 18:59 Intake Total 118 Output Total 50 Balance -50 118 Weight 117.48 kg 117.48 kg Intake: Oral 118 Output: Emesis 50 Other: # Voids 1 2 - Labs CBC & Chem 7: 09/21/24 04:32 09/21/24 04:32 Labs: Abnormal Lab Results - Last 24 Hours (Table) 09/20/24 09/21/24 09/21/24 Range/Units 22:00 04:32 04:32 WBC 3.5 L 3.76 L (3.8-10.6) k/uL RBC 4.38 L (4.40-5.60) X 10*6/uL Sodium 134 L (135-145) mmol/L Carbon Dioxide 18.1 L (21.6-31.8) mmol/L Anion Gap 14.90 H (4.00-12.00) mmol/L Glucose 131 H (70-110) mg/dL Calcium 8.6 L (8.7-10.3) mg/dL AST 49 H (14-35) U/L Albumin/Globulin Ratio 1.56 L (1.60-3.17) Ratio
--- NOTE | 2024-09-21 16:14 | P.CONS ---
History of Present Illness - Reason for Consult Consult date: 09/21/24 colon cancer Requesting physician: Logan Cristobal - Chief Complaint hemoptysis - History of Present Illness Mr Pope is a 54 year old male with a history of CVA, PE and DVT. He has been seen by Dr Merida and Dr. Canada in the past due to PE and DVTs. He had presented with a CVA related to an ASD in 1993. He was on coumadin till about 2000. At that time coumadin discontinuation was recommended by his Neurologist. He was seen by Dr Merida with testing revealing heterozygous Factor 5 Leiden mutation, as well as Prothrombin gene mutation, and cardiolipin antibody. He was referred to [facility], where he had his ASD repaired. Post repair, discontinuation of coumadin was recommended and was placed on baby ASA. He was admitted to [facility] with acute onset of SOB. CTA revealed a large saddle PE, and a rt popliteal DVT. No extraneous provoking factor was identified. He had TPA and was started on IV heparin, but was transferred to [facility] due to progression of DVT/PE, when switched to Xarelto. He underwent repeat TPA therapy at [facility]. He also had catheter associated thrombolysis of the RLE, with recurrent occlusion however. He was discharged on Lovenox 120 mg SQ q 12, after confirming therapeutic anti-Xa. IV heparin and Xarelto were determined to be ineffective. He was then referred back here for further evaluation and recommendations. It was decided to monitor him with serial dopplers and anti Xa levels. His dopplers in 04/27 and 05/28 showed stable clot in the mid to distal femoral and popliteal. F/U dopplers since then showed no progression. He has had some local bleeds and bruising at the site of injections, which are minor, but bothersome for him. Therefore, after discussion, he was changed to Eliquis 5 mg PO BID. He started that on 03/18/16. He noticed some increased redness and warmth in his RLE on 03/19/16, and went to the ER. Repeat doppler showed " clot behind the knee" per the pt. He was placed back on Lovenox, with resolution of the above symptoms by 03/20/16. The formal doppler report revealed chronic thrombus in the popliteal vein, with actually good flow seen in the femoral and saphenous veins. This was not felt to indicate progression. He was thus placed back on Eliquis, initially 10 mg BID for a week, and then 5 mg PO BID. He was then referred back in 06/04. The patient had continued on eliquis 5 mg twice a day with good tolerance. He reported no major medical or surgical events till about 04/04. At that time he developed some redness and swelling in the anterior distal right lower extremity. He had Dopplers are at [facility], that noted the anterior tibial vein to be noncompressible. The report did not mention the level at which the abnormality was present. The patient was told that he had a new clot, and was changed to xarelto. He had repeat Dopplers on 06/04/22, which were negative, including in the ATV. A Doppler 07/04 at [facility] had shown chronic clot involving the right distal femoral popliteal and upper calf veins though the specific veins were not mentioned. The patient denied any provoking factors in 04/04. Repeat Doppler in 06/04 were done after laceration causing some swelling which was subsequently found to be cellulitis. He had antiphospholipid antibody testing done, which was negative. Therefore there is no indication to change anticoagulation based on the same. It was discussed with the patient about changing from eliquis to xarelto, in case of failure of eliquis, given that mechanism of action is Essentially similar. However in this case it was not clear if the patient truly had a failure of eliquis. In addition Dopplers post starting Xarelto showed improvement. Theref ore it is quite reasonable to continue his current regimen. It was reiterated that he should continue anticoagulation indefinitely as long as there are no tolerance issues. Patient was last seen in clinic 06/2022. Patient presented to the emergency room with complaints of hemoptysis. Patient was seen in the ER yesterday and CTA chest which was negative for pulmonary embolism. No acute cardiopulmonary processes. 5.4 mm nodule in the right upper lobe. Patient was subsequently discharged home but states upon walking to his car in the parking lot he started to have hemoptysis at which time he returned to the ER and was admitted for further management and evaluation. Pulmonology is following and is considering bronchoscopy if hemoptysis continues. Xarelto has been held. Patient states he last experienced hemoptysis this morning at 430. Denies any recent URI symptoms. Blood counts stable. WBC 3.7, hemoglobin 13.2, MCV 91.7, platelets 186,000. Patient states since he last followed up he was diagnosed with colon cancer in January 2023. Patient underwent surgery and was started on adjuvant oral chemo agent, likely Xeloda but had noted progression in November 2023 at which time he was started on FOLFOX. Completing his last cycle on 09/17/2024. He follows with Dr. Hope at [facility]. Review of Systems 10 point ROS is negative except as stated in the HPI Past Medical History Past Medical History: Deep Vein Thrombosis (DVT), Hyperlipidemia, Pulmonary Embolus (PE), Seizure Disorder, Sleep Apnea/CPAP/BIPAP, Thyroid Disorder Additional Past Medical History / Comment(s): gout, PE,rt leg dvt, colon cancer -01/2023 with chemo tx last from saturday09/15/24- to 09/17/24. last seizure was 10years ago. factor 5 clotting disorder. History of Any Multi-Drug Resistant Organisms: None Reported Past Surgical History: Coronary Bypass/CABG, Orthopedic Surgery Additional Past Surgical History / Comment(s): 2004 heart vavle sx, lap colectomy 03/28/2023 Past Anesthesia/Blood Transfusion Reactions: No Reported Reaction Past Psychological History: Anxiety Smoking Status: Never smoker Past Alcohol Use History: Occasional Past Drug Use History: None Reported - Past Family History Father Family Medical History: Cancer Additional Family Medical History / Comment(s): skin cancer at age 78 Mother Family Medical History: Cancer Additional Family Medical History / Comment(s): pancreatic cancer age 67 Sister(s) Additional Family Medical History / Comment(s): clotting fator 5 Medications and Allergies Home Medications Medication Instructions Recorded Confirmed Type Aspirin EC [Ecotrin Low Dose] 81 mg PO HS 09/20/24 09/20/24 History Atorvastatin [Lipitor] 60 mg PO HS 09/20/24 09/20/24 History LORazepam [Ativan] 0.5 mg PO DAILY PRN 09/20/24 09/20/24 History Levothyroxine Sodium [Synthroid] 137 mcg PO HS 09/20/24 09/20/24 History Loratadine [Claritin] 10 mg PO DAILY PRN 09/20/24 09/20/24 History Rivaroxaban [Xarelto] 20 mg PO HS 09/20/24 09/20/24 History allopurinoL [Zyloprim] 200 mg PO HS 09/20/24 09/20/24 History Allergies Allergy/AdvReac Type Severity Reaction Status Date / Time No Known Allergies Allergy Verified 09/20/24 16:54 Physical Exam Vitals: Vital Signs Temp Pulse Pulse Resp BP BP BP 09/21/24 07:05 98 F 88 16 120/64 09/21/24 02:10 98.7 F 90 16 135/74 09/20/24 21:39 105 H 20 162/80 09/20/24 18:46 98.4 F 85 16 144/86 09/20/24 18:31 98.2 F 91 18 139/79 09/20/24 17:51 89 18 09/20/24 16:11 92 18 132/83 09/20/24 15:03 97.6 F 123 H 16 160/79 Pulse Ox 09/21/24 07:05 95 09/21/24 02:10 95 09/20/24 21:39 94 L 09/20/24 18:46 96 09/20/24 18:31 98 09/20/24 17:51 98 09/20/24 16:11 94 L 09/20/24 15:03 95 Intake and Output 09/20/24 09/21/24 09/21/24 22:59 06:59 14:59 Intake Total 118 Output Total 50 Balance -50 118 Intake: Oral 118 Output: Emesis 50 Other: # Voids 1 1 Weight 117.48 kg - Constitutional General appearance: average body habitus, no acute distress - EENT Eyes: anicteric sclerae, EOMI ENT: hearing grossly normal - Respiratory Respiratory: bilateral: CTA - Cardiovascular Rhythm: regular - Gastrointestinal General gastrointestinal: soft, no tenderness - Integumentary Integumentary: no cyanotic, no jaundiced - Musculoskeletal Musculoskeletal: strength equal bilaterally - Psychiatric Psychiatric: A&O x's 3 Results CBC & Chem 7: 09/21/24 04:32 09/21/24 04:32 Labs: Abnormal Lab Results - Last 24 Hours (Table) 09/20/24 09/21/24 09/21/24 Range/Units 22:00 04:32 04:32 WBC 3.5 L 3.76 L (3.8-10.6) k/uL RBC 4.38 L (4.40-5.60) X 10*6/uL Sodium 134 L (135-145) mmol/L Carbon Dioxide 18.1 L (21.6-31.8) mmol/L Anion Gap 14.90 H (4.00-12.00) mmol/L Glucose 131 H (70-110) mg/dL Calcium 8.6 L (8.7-10.3) mg/dL AST 49 H (14-35) U/L Albumin/Globulin Ratio 1.56 L (1.60-3.17) Ratio CT scan - chest: report reviewed Assessment and Plan (1) Colon cancer Current Visit: No Status: Acute Priority: High Code(s): C18.9 - MALIGNANT NEOPLASM OF COLON, UNSPECIFIED SNOMED Code(s): 970446161 (2) Hemoptysis Current Visit: Yes Status: Acute Priority: High Code(s): R04.2 - HEMOPTYSIS SNOMED Code(s): 36811497 Plan: Hemoptysis: Presented to the emergency room with complaints of hemoptysis. -CTA chest which was negative for pulmonary embolism. No acute cardiopulmonary processes. 5.4 mm nodule in the right upper lobe. -Xarelto has been held -Pulmonology is following and is considering bronchoscopy if hemoptysis continues. Last experienced hemoptysis this morning at 0430. -Blood counts stable. WBC 3.7, hemoglobin 13.2, MCV 91.7, platelets 186,000 -CT findings showing nothing acute to attribute to hemoptysis, agree with bronch to further evaluate -Continue to monitor CBC Colon cancer: Diagnosed with colon cancer in January 2023. He follows with [facility]. [facility] at [facility]. -Patient underwent surgery and was started on adjuvant oral chemo agent, likely Xeloda but had noted progression in November 2023 at which time he was started on FOLFOX. Completing his last cycle on 09/17/2024. -CTA chest showing subcentimeter nodule in the RUL, measuring 5.4mm. Per this has been noted previously -Patient will continue f/u with Dr. Hope upon discharge Doctor attests: I performed a history and physical examination of this patient, developed impression and plan of care. Discussed with dictator. I agree with dictators note, documented as a scribe.
--- NOTE | 2024-09-22 11:46 | P.PN ---
Subjective Progress Note Date: 09/22/24 Hospital Course: 54-year-old male with past medical history of metastatic colon cancer on chemotherapy, PE, factor V Leyden deficiency, history of stroke, on anticoagulation, who presented to the ER after 2 episodes of hemoptysis. Patient described bright red blood with small clots at times with some clots. Patient was evaluated in the ER and case was discussed with pulmonology, initial decision was made to discharge the patient, however, patient had another episode of hemoptysis and was decided to admit him, patient was scheduled for bronchoscopy for 09/22, blood thinners on hold. Subjective: Patient seen this morning. He denies any acute complaints. He is aware that he is having bronchoscopy today. Vitals Signs Reviewed. 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 Psych -flat affect, calm Assessment and Plan: Acute hemoptysis in the patient with factor V Leyden deficiency on anticoagulation -Patient scheduled for bronchoscopy today -I reviewed hematology note who agrees with the bronchoscopy -Continue to hold Eliquis -PPI -Labs to review from today Lactic acidosis, resolved Metastatic colon cancer on chemotherapy DVT ppx: On hold Anticipated discharge place: home Anticipated discharge time:depending on clinical course Objective - Vital Signs Vital signs: Vital Signs Temp 97.8 F 09/22/24 07:15 Pulse 86 09/22/24 07:15 Resp 17 09/22/24 07:15 BP 132/78 09/22/24 07:15 Pulse Ox 97 09/22/24 07:15 FiO2 Intake & Output 09/21/24 09/22/24 09/22/24 18:59 06:59 18:59 Intake Total 340 Balance 340 Intake: Oral 340 Other: # Voids 2 2 - Labs CBC & Chem 7: 09/21/24 04:32 09/21/24 04:32
--- NOTE | 2024-09-22 11:53 | P.PN ---
Subjective Progress Note Date: 09/22/24 Patient is a 54-year-old male with past medical history significant for metastatic colon cancer (currently on chemotherapy), previous DVT/PE, factor V Leyden, chronically anticoagulated on Xarelto, previous CVA/TIA, hyperlipidemia, hypothyroidism. Patient normally follows with the [facility] for his primary care needs. Over the last 24 hours, patient has had 3 episodes of hemoptysis. Fairly large in volume with clots but mixed with sputum. Approximately quarter to half cup in volume. Patient does take Xarelto on an outpatient basis. He has history of DVT/PE and factor V Leyden. Denies any prior history of hemoptysis. He is currently being evaluated on 6 N. He is on room air oxygen in no acute distress. He does have a sputum basin at bedside, approximately quarter cup, hemoptysis mixed with sputum and clots. His last episode of hemoptysis was at 2100 the last night. Denies chest pain. Denies trauma. Denies nausea, vomiting, hematemesis. Chest CTA did not show any obvious sources of bleeding. Less than optimal opacification of the pulmonary arteries but no definite filling defects consistent with pulmonary embolism. No acute cardiopulmonary process. There was a 5.4 mm right upper lobe nodule. No prior available study for comparison.CBC: WBC count 3.5, hemoglobin 13.4, hematocrit 39.9, platelets 187. Coagulation profile: PT 10.6, INR 1, APTT 24. CMP: Sodium 132, potassium 3.9, chloride 101, serum bicarb 19, BUN 12, creatinine 0.85, glucose 242. Lactic was 2.2. LFTs unremarkable. Current vitals: Temperature 98.4 F, heart rate 85 bpm, blood pressure 144/86 mmHg, SpO2 96% on room air. Again patient is not in any respiratory distress. The patient is seen today September 22, 2024 in follow-up on the regular medical floor. He is currently resting in bed. Maintaining good O2 saturations in the 90s on room air. Still having issues with hemoptysis. Xarelto remains on hold. Chest x-ray reveals atelectasis of the right lung base. White count 3.7. Hemoglobin 13.2. Platelets 186. Sodium 134. Potassium 4.3. Bicarb 18. BUN 12. Creatinine 0.9. Glucose 131. Plan is for bronchoscopy today Objective - Vital Signs Vital signs: Vital Signs Temp 97.8 F 09/22/24 07:15 Pulse 86 09/22/24 07:15 Resp 17 09/22/24 07:15 BP 132/78 09/22/24 07:15 Pulse Ox 97 09/22/24 07:15 FiO2 Intake & Output 09/21/24 09/22/24 09/22/24 18:59 06:59 18:59 Intake Total 340 Balance 340 Intake: Oral 340 Other: # Voids 2 2 - Exam GENERAL EXAM: Alert, 54-year-old male, resting in bed, on room air, no acute respiratory distress. HEAD: Normocephalic and atraumatic EYES: Normal reaction of pupils, equal size. NOSE: Clear with pink turbinates. THROAT: No erythema or exudates. NECK: No masses, no JVD. CHEST: No chest wall deformity. LUNGS: Equal air entry with no crackles, wheeze, rhonchi or dullness. No conversational dyspnea or accessory muscle use.. CVS: S1 and S2 normal with no audible murmur, regular rhythm. No extra heart sounds ABDOMEN: No hepatosplenomegaly, active bowel sounds, no guarding or rigidity. SPINE: No scoliosis or deformity SKIN: No rashes CENTRAL NERVOUS SYSTEM: No focal deficits, tone is normal in all 4 extremities. EXTREMITIES: There is no peripheral edema, clubbing, or cyanosis. Peripheral pulses are intact. - Labs CBC & Chem 7: 09/21/24 04:32 09/21/24 04:32 Assessment and Plan Assessment: Hemoptysis, three occurrences, estimated at half cup in volume Chronically anticoagulated on Xarelto, which is on hold, secondary to above History of factor V Leyden History of DVT/PE History of CVA/TIA History of metastatic colon cancer, reportedly currently on chemotherapy History of hyperlipidemia History of hypothyroidism Obesity, BMI 35.1 kg/m Plan: The patient was seen and evaluated Remains stable and on room air Labs and medications reviewed Xarelto remains on hold Continues with hemoptysis Plan is for bronchoscopy today This patient was seen independently by the pulmonary nurse practitioner addressing pulmonary issues I have personally seen and examined the patient, performed the documentation and the assessment and plan as written. Number of minutes spent on the visit: 25 Dictation was produced using [employer] dictation software. Please excuse any gram matical, word or spelling errors.
[2024-09-22] MEDS ORDERED: GLYCOPYRROLATE 0.2 MG/ML 2 ML VIAL ONE (12:34)
[2024-09-22] MEDS ORDERED: diphenhydrAMINE 50 MG/ML 1 ML VIAL ONE (12:34)
[2024-09-22] MEDS ORDERED: LIDOCAINE HCL/PF 20 MG/ML 10 ML AMP ONE (12:34)
[2024-09-22] MEDS ORDERED: DEXAMETHASONE SOD PHOSPHATE 10 MG/ML 1 ML VIAL ONE (12:34)
[2024-09-22] MEDS ORDERED: PROPOFOL 10 MG/ML 20 ML VIAL IV ONE (12:34)
[2024-09-22] MEDS ORDERED: KETAMINE HCL IN 0.9 % NACL 50 MG/5 ML SYRINGE ONE (12:34)
[2024-09-22] MEDS ORDERED: MIDAZOLAM 2 MG/2 ML VIAL ONE (12:34)
[2024-09-22] MEDS: IV FLUID CONTINUATION 200 ML IV ONE (12:47)
[2024-09-22] MEDS: SODIUM CHLORIDE 0.9% 500 ML 500 ML IV ONE ×2 (12:48→13:09)
[2024-09-22] MEDS: LIDOCAINE 2% INJ 20 MG/ML INTRATRACH ONE (12:52)
[2024-09-22 14:17] LABS: Glucose,Whole Blood 139 mg/dL (70-110)
[2024-09-22 14:50] LABS: HCT 40.4 % (39.0-53.0); HGB 13.3 gm/dL (13.0-17.5); MCH 30.1 pg (25.0-35.0); MCHC 32.9 g/dL (31.0-37.0); MCV 91.4 fL (80.0-100.0); Platelet Count 193 k/uL (150-450); RBC 4.42 m/uL (4.30-5.90); RDW 15.3 % (11.5-15.5); WBC 3.2 k/uL (3.8-10.6)
[2024-09-22 15:14] LABS: African American GFR (CKD) >90 (>60 ml/min/1.73 sqM); Anion Gap 9 mmol/L; Blood Urea Nitrogen 9 mg/dL (9-20); Calcium 8.4 mg/dL (8.4-10.2); Carbon Dioxide 16 mmol/L (22-30); Chloride 109 mmol/L (98-107); Glucose 142 mg/dL (74-99); Non-African American GFR(CKD) >90 (>60 ml/min/1.73 sqM); Potassium 4.5 mmol/L (3.5-5.1); Sodium 134 mmol/L (137-145)
--- NOTE | 2024-09-22 15:47 | P.PN ---
Subjective Progress Note Date: 09/22/24 Reports last hemoptysis episode was yesterday at 1430. Hgb stable at 13.3, plt 193. Scheduled for bronch today Objective - Vital Signs Vital signs: Vital Signs Temp 97.8 F 09/22/24 07:15 Pulse 86 09/22/24 07:15 Resp 17 09/22/24 07:15 BP 132/78 09/22/24 07:15 Pulse Ox 97 09/22/24 07:15 FiO2 Intake & Output 09/21/24 09/22/24 09/22/24 18:59 06:59 18:59 Intake Total 340 Balance 340 Intake: Oral 340 Other: # Voids 2 2 - Constitutional General appearance: Present: average body habitus, no acute distress - EENT Eyes: Present: anicteric sclerae, EOMI ENT: Present: hearing grossly normal - Respiratory Details: breathing is even and unlabored - Cardiovascular Details: skin warm and dry - Integumentary Integumentary: Absent: cyanotic - Neurologic Neurologic: Present: CNII-XII intact - Psychiatric Psychiatric: Present: A&O x's 3 - Labs CBC & Chem 7: 09/22/24 14:33 09/22/24 14:33 Assessment and Plan (1) Colon cancer Current Visit: No Status: Acute Priority: High Code(s): C18.9 - MALIGNANT NEOPLASM OF COLON, UNSPECIFIED SNOMED Code(s): 078795655 (2) Hemoptysis Current Visit: Yes Status: Acute Priority: High Code(s): R04.2 - HE MOPTYSIS SNOMED Code(s): 65011563 Plan: Hemoptysis: Presented to the emergency room with complaints of hemoptysis. -CTA chest which was negative for pulmonary embolism. No acute cardiopulmonary processes. 5.4 mm nodule in the right upper lobe. -Xarelto has been held. Last experienced hemoptysis yesterday at 1430 -Hemoglobin stable, 13.3, platelets 193,000 -CT findings showing nothing acute to attribute to hemoptysis -Pulmonology is following and pt is scheduled for bronchoscopy today to further evaluate -Continue to monitor CBC Colon cancer: Diagnosed with colon cancer in January 2023. He follows with Dr. Hope at [facility]. -Patient underwent surgery and was started on adjuvant oral chemo agent, likely Xeloda but had noted progression in November 2023 at which time he was started on FOLFOX. Completing his last cycle on 09/17/2024. -CTA chest showing subcentimeter nodule in the RUL, measuring 5.4mm. Per this has been noted previously -Patient will continue f/u with Dr. Hope upon discharge
--- NOTE | 2024-09-22 16:21 | P.PN ---
Progress Note - Text Progress Note Date: 09/22/24 Patient today had a bronchoscopy and I was told by the adult basic education manager that nothing could be done because there was significant bleeding. Proposal Editor recommended the patient to be transferred to [facility] for bronchial embolization. Patient accepted at [facility] by Dr. Quesada
--- NOTE | 2024-09-22 16:28 | P.DS ---
Providers Date of admission: 09/20/24 15:45 Attending physician: Sudhakar Jean MD Consults: 09/20/24 15:43 Consult Physician Routine Consulting Provider: Eduar Canada Consult Reason/Comments: oncological care Do you want consulting provider notified?: Yes Consult Physician Urgent Consulting Provider: Tosin Curry Consult Reason/Comments: Hemoptysis Do you want consulting provider notified?: Yes Primary care physician: [facility] Hospital Course: Discharge Diagnosis: Hemoptysis Factor V Leyden deficiency Lactic acidosis: Resolved Metastatic colon cancer Hospital Course: 54-year-old male with past medical history of metastatic colon cancer on chemotherapy, PE, factor V Leyden deficiency, history of stroke, on anticoagulation, who presented to the ER after 2 episodes of hemoptysis. Patient described bright red blood with small clots at times with some clots. Patient was evaluated in the ER and case was discussed with pulmonology, initial decision was made to discharge the patient, however, patient had another episode of hemoptysis so decision was made to admit him. Patient CTA chest showed less than optimal opacification of the pulmonary arteries but there is no definite filling defect to suggest pulmonary embolism. No acute cardiopulmonary disease. 5.4 mm nodule in the right upper lobe. Patient Eliquis was held. On 1 11/23/2023 patient had bronchoscopy and was found to have significant bleeding. Discussed the case with the flower shop laborer/designer who recommended to transfer the patient to [facility] for bronchial embolization. Patient accepted at [facility]. Patient seen and examined at bedside.[] Vital signs reviewed and stable. 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 Patient discharged on [09/22/2024] Patient Condition at Discharge: Stable Plan - Discharge Summary Discharge Rx Participant: No New Discharge Prescriptions: No Action Rivaroxaban [Xarelto] 20 mg PO HS Loratadine [Claritin] 10 mg PO DAILY PRN PRN Reason: Allergy Symptoms LORazepam [Ativan] 0.5 mg PO DAILY PRN PRN Reason: Anxiety Levothyroxine Sodium [Synthroid] 137 mcg PO HS Atorvastatin [Lipitor] 60 mg PO HS allopurinoL [Zyloprim] 200 mg PO HS Aspirin EC [Ecotrin Low Dose] 81 mg PO HS Discharge Medication List Aspirin EC [Ecotrin Low Dose] 81 mg PO HS 09/20/24 [History] Atorvastatin [Lipitor] 60 mg PO HS 09/20/24 [History] LORazepam [Ativan] 0.5 mg PO DAILY PRN 09/20/24 [History] Levothyroxine Sodium [Synthroid] 137 mcg PO HS 09/20/24 [History] Loratadine [Claritin] 10 mg PO DAILY PRN 09/20/24 [History] Rivaroxaban [Xarelto] 20 mg PO HS 09/20/24 [History] allopurinoL [Zyloprim] 200 mg PO HS 09/20/24 [History] Follow up Appointment(s)/Referral(s): [facility],Clinic [Primary Care Provider] - 1-2 days
--- NOTE | 2024-09-22 19:44 | PCN ---
PROCEDURE NOTE PULMONARY/CRITICAL CARE PROCEDURE NOTE: PROCEDURES PERFORMED: Bronchoscopy, airway examination, therapeutic lavage in a patient with significant hemoptysis. The patient's procedure was done in [facility] room #2. ANESTHESIA PROVIDED: Monitored anesthesia care. ASSISTANT OPERATIONS MANAGER: Dr. Castelan. POPPED [employer]N OVEN ATTENDANT: Dr. Natalia Coreas. There was informed consent and universal timeout. After the patient was adequately sedated and being fully monitored, the bronchoscope was inserted through the right nostril. There was blood in the nasopharynx. The bronchoscope was taken through the oropharynx into the hypopharynx. There was also some bright red blood noted in the hypopharynx. The hypopharyngeal structures, although could not be evaluated completely, appeared relatively normal. The glottic opening was topicalized. The bronchoscope was pushed through the glottic opening into the trachea. There was blood noted throughout the trachea. It was bright red. The tracheal jr was sharp. There were no lesions in the trachea. The right and left mainstem were topicalized. We were able to do a fairly good examination of the right upper lobe and its 3 segments right middle lobe and its 2 segments, right lower lobe and its 5 segments, left upper lobe and its 2 segments, and lingula and its 2 segments, and left lower lobe and its 4 segments. There appeared to be most of the bleeding coming from the right lower lobe. There was a large blood clot noted in the right lower lobe, so we could not enter the right lower lobe completely. The patient had quite a bit of bleeding. We used cold saline to control the bleeding. Again, there was no dominant mass or tumor noted. There was blood on the left side, but much of which was likely aspirated from the right side. There was no distinct lesion. The mucosa was a little erythematous and hyperemic. The bronchoscope was used to remove blood and blood clots. No sampling was done. The bronchoscope was withdrawn. The patient will be recovered. There was no immediate complication. MMODL / IJN: [id number] /
[2024-09-23 04:22] VITALS: TEMP 97.7
[2024-09-23 05:02] VITALS: BP 141/81; PULSE 75; RESP 16
--- NOTE | 2024-09-24 07:21 | CDI ---
Documentation Clarification Form Date: 09/24/2024 06:51:55 AM From: Melody Elaine Admit Date: 09/20/2024 03:45:00 PM Patient Name: Melinda Pope Visit Number: [id number] Discharge Date: 09/23/2024 05:52:00 AM ATTENTION: The Clinical Documentation Specialists (CDI) and [facility] Coding Staff appreciate your assistance in clarifying documentation. Please respond to the clarification below the line at the bottom and electronically sign. The CDI & [facility] Coding staff will review the response and follow-up if needed. Please note: Queries are made part of the Legal Health Record. If you have any questions, please contact the author of this message via ITS. Doctor/Provider: Go Rice The COVID-19 test obtained on 09/22/2024 was positive. There is no documentation of Covid 19 in the chart. Please clarify if patient had Covid 19. History/risk factors: Hemoptysis, lung nodule, Factor V leyden, lactic acidosis Clinical Indicators: Detected on Covid test. Treatment: [place] Please clarify the COVID-19 status: [ ] Positive result, treating for COVID-19 infection [X ] COVID-19 ruled out [ ] Other, please specify MTDD
== END 2024-09-23 05:52 | disposition short-term general hospital (02) | DRG 204 ==
LOC: EC 14:59 → 6NMEDSUR 15:44 → OBSVTOIN 15:45 → 6NMEDSUR 18:08 → 2SICU 09-22 13:25
PROVIDERS: ADMIT Family Medicine; ATTEND Family Medicine
PROC: 3E1F88Z Irrigation of Respiratory Tract using Irrigating Substance, Via Natural or Artificial Opening Endoscopic (ICD-10-PCS; principal; 2024-09-22 12:00)
PROC: 0BJ08ZZ Inspection of Tracheobronchial Tree, Via Natural or Artificial Opening Endoscopic (ICD-10-PCS; principal; 2024-09-22 12:00)
DX: R04.2 Hemoptysis (principal); C18.9 Malignant neoplasm of colon, unspecified; C79.9 Secondary malignant neoplasm of unspecified site; D62 Acute posthemorrhagic anemia; D68.51 Activated protein C resistance; D68.52 Prothrombin gene mutation; E87.1 Hypo-osmolality and hyponatremia; E87.20 Acidosis, unspecified; J98.11 Atelectasis; F41.9 Anxiety disorder, unspecified; I25.10 Atherosclerotic heart disease of native coronary artery without angina pectoris; G40.909 Epilepsy, unspecified, not intractable, without status epilepticus; M10.9 Gout, unspecified; G47.30 Sleep apnea, unspecified; E03.9 Hypothyroidism, unspecified; E66.9 Obesity, unspecified; E78.5 Hyperlipidemia, unspecified; E86.1 Hypovolemia; Z68.35 Body mass index [BMI] 35.0-35.9, adult; Z86.711 Personal history of pulmonary embolism; Z79.01 Long term (current) use of anticoagulants; Z86.718 Personal history of other venous thrombosis and embolism; Z86.73 Personal history of transient ischemic attack (TIA), and cerebral infarction without residual deficits; Z79.890 Hormone replacement therapy; Z79.899 Other long term (current) drug therapy; Z87.74 Personal history of (corrected) congenital malformations of heart and circulatory system; Z95.1 Presence of aortocoronary bypass graft
CPT/HCPCS: 31624; 71045; 80048; 80053; 85025; 85027; 87636; 96360; 96361; 99285